=== PATIENT | male | born 1950 | race Caucasian/White ===

== ENCOUNTER 2025-01-04 19:55 | Inpatient (IN) ==
[2025-01-04] MEDS ORDERED: IOPAMIDOL 100 ML BOTTLE IV ONE (19:56)
[2025-01-04 20:47] LABS: Basophils # (Auto) 0.01 K/mcL (0.00-0.30); Basophils % (Auto) 0.1 % (0.0-2.0); Eosinophils # (Auto) 0.44 K/mcL (0.00-0.70); Eosinophils % (Auto) 3.6 % (0.0-7.0); Hematocrit 48.3 % (40.1-51.0); Lymphocytes # (Auto) 0.68 K/mcL (1.50-4.80); Lymphocytes % (Auto) 5.6 % (15.5-49.0); Mean Cell Volume 96.8 fL (80.0-100.0); Mean Corpuscular HGB Conc 33.1 g/dL (31.0-36.0); Mean Platelet Volume 8.8 fL (8.8-12.5); Monocytes # (Auto) 1.04 K/mcL (0.10-0.90); Monocytes % (Auto) 8.5 % (1.0-12.0); Neutrophils % (Auto) 81.6 % (38.0-78.0); Platelet Count 226 K/mcL (140-440); RBC 4.99 M/mcL (4.63-6.08); Red Cell Distribution Width 13.6 % (11.5-14.5); WBC 12.2 K/mcL (4.5-11.0)
[2025-01-04] MEDS: SODIUM CHLORIDE IV ONE (20:48)
[2025-01-04] MEDS: cefTRIAXone 1 GM VIAL IV ONE (20:48)
[2025-01-04 20:59] LABS: Prothrombin Time 14.3 sec (11.9-14.5)
[2025-01-04 21:11] LABS: ALT/SGPT 34 U/L (<40); AST/SGOT 30 U/L (<40); Albumin 4.1 gm/dL (3.2-5.2); Albumin/Globulin Ratio 1.3 (1.0-2.3); Alkaline Phosphatase 86 U/L (39-117); Bilirubin,Total 0.6 mg/dL (0.1-1.0); Blood Urea Nitrogen 12 mg/dL (8-23); Calcium 8.8 mg/dL (8.6-10.4); Carbon Dioxide 21 mmol/L (22-30); Chloride 93 mmol/L (96-108); Globulin 3.1 gm/dL (2.2-3.7); Glomerular Filtration Rate 87; Glucose 149 mg/dL (70-105); Potassium 4.3 mmol/L (3.3-5.1); Sodium 131 mmol/L (133-145)
[2025-01-04] MEDS: ONDANSETRON 4 MG/2 ML VIAL IV ONE (21:44)
[2025-01-04] MEDS: ACETAMINOPHEN 1,000 MG/100 ML BAG IV ONE (21:45)
[2025-01-04] MEDS: AZITHROMYCIN 500 MG in 0.9 % SODIUM CHLORIDE 250 ML IV ONE (22:55)
[2025-01-05 00:30] LABS: Appearance,Urine Clear (Clear); Bacteria,Urine Rare /hpf (0); Bilirubin,Urine Negative (Negative); Color,Urine Yellow; Glucose,Urine (UA) Negative (Negative); Ketones,Urine Negative (Negative); Leukocyte Esterase,Urine Negative /uL (Negative); Mucus,Urine Few /hpf; Nitrate,Urine Negative (Negative); Protein,Urine 30 mg/dL (Negative); Urine Blood Negative ery/mcL (Negative); Urine RBC < 1 /hpf (0-3); Urine Squamous Epithelial Cell < 1 /hpf (0-4); Urine WBC 2 /hpf (0-4); Urobilinogen,Urine Normal
[2025-01-05] MEDS: DEXTROSE 5%-LR 1,000 ML IV SCH (02:54)
[2025-01-05] MEDS: HYDROmorphone 0.5 MG/0.5 ML SYRINGE IV PRN (05:37)
[2025-01-05] MEDS ORDERED: ALBUTEROL INH PRN (08:45)
[2025-01-05] MEDS ORDERED: BUDESONIDE INH PRN (08:45)
[2025-01-05] MEDS: TAMSULOSIN 0.4 MG CAPSULE PO SCH (09:35)
[2025-01-05] MEDS: Budesonide-Glycopyr-Formoterol [Breztri] INH SCH (10:38)
[2025-01-05] MEDS: ONDANSETRON 4 MG/2 ML VIAL IV PRN (17:09)
[2025-01-05] MEDS: ATORVASTATIN 40 MG TABLET PO SCH (20:29)
[2025-01-05] MEDS: MONTELUKAST 10 MG TABLET PO SCH (20:29)
[2025-01-05] MEDS: DULoxetine 30 MG CAPSULE PO SCH (20:29)
[2025-01-06 06:18] LABS: Hemoglobin 14.1 g/dL (13.7-17.5); Mean Platelet Volume 8.9 fL (8.8-12.5); Platelet Count 199 K/mcL (140-440); Red Cell Distribution Width 13.7 % (11.5-14.5)
[2025-01-06 07:03] LABS: Blood Urea Nitrogen 10 mg/dL (8-23); Calcium 7.9 mg/dL (8.6-10.4); Carbon Dioxide 29 mmol/L (22-30); Chloride 99 mmol/L (96-108); Glomerular Filtration Rate 87; Glucose 152 mg/dL (70-105); Potassium 3.8 mmol/L (3.3-5.1); Sodium 137 mmol/L (133-145)
[2025-01-06] MEDS: ACETAMINOPHEN 1,000 MG/100 ML BAG IV PRN (20:40)
[2025-01-06] MEDS: PRIMIDONE 50 MG TABLET PO SCH (20:40)
[2025-01-07 05:54] LABS: Hemoglobin 13.3 g/dL (13.7-17.5); Mean Cell Volume 100.7 fL (80.0-100.0); Mean Corpuscular HGB Conc 31.7 g/dL (31.0-36.0); Mean Platelet Volume 8.7 fL (8.8-12.5); Platelet Count 191 K/mcL (140-440); RBC 4.17 M/mcL (4.63-6.08); Red Cell Distribution Width 13.6 % (11.5-14.5); WBC 7.1 K/mcL (4.5-11.0)
[2025-01-07 06:13] LABS: Blood Urea Nitrogen 10 mg/dL (8-23); Calcium 8.1 mg/dL (8.6-10.4); Carbon Dioxide 31 mmol/L (22-30); Chloride 97 mmol/L (96-108); Glomerular Filtration Rate 87; Glucose 134 mg/dL (70-105); Potassium 3.6 mmol/L (3.3-5.1); Sodium 137 mmol/L (133-145)
[2025-01-07] MEDS: BENZOCAINE/MENTHOL 1 LOZENGE PO PRN (14:20)
[2025-01-07] MEDS: DEXTROSE 5%-1/2NS 1,000 ML IV SCH (17:44)
[2025-01-08 06:06] LABS: Blood Urea Nitrogen 8 mg/dL (8-23); Calcium 8.3 mg/dL (8.6-10.4); Carbon Dioxide 31 mmol/L (22-30); Chloride 95 mmol/L (96-108); Glomerular Filtration Rate 92; Glucose 125 mg/dL (70-105); Potassium 3.4 mmol/L (3.3-5.1); Sodium 138 mmol/L (133-145)
[2025-01-08] MEDS: PANTOPRAZOLE 40 MG VIAL IV SCH (07:04)
[2025-01-08 07:39] LABS: Hematocrit 42.5 % (40.1-51.0); Hemoglobin 13.5 g/dL (13.7-17.5); Mean Cell Volume 99.8 fL (80.0-100.0); Mean Corpuscular HGB Conc 31.8 g/dL (31.0-36.0); Mean Platelet Volume 8.9 fL (8.8-12.5); Platelet Count 232 K/mcL (140-440); RBC 4.26 M/mcL (4.63-6.08); Red Cell Distribution Width 13.2 % (11.5-14.5)
[2025-01-08] MEDS ORDERED: DIATRIZOATE MEGLU/DIATRIZO SOD 30 ML BOTTLE PO ONE (12:55)
[2025-01-08] MEDS ORDERED: DIATRIZOATE MEGLU/DIATRIZO SOD 120ML BOTTLE PO ONE (12:55)
[2025-01-08] MEDS ORDERED: [UNRECOGNIZED DRUG - OTHER] INHALATION PRN (18:40)
[2025-01-08] MEDS ORDERED: ALBUTEROL INHALATION PRN (18:40)
[2025-01-08] MEDS ORDERED: BUDESONIDE INHALATION PRN (18:40)
[2025-01-09] MEDS: DEXTROSE 5%-1/2NS W/20MEQ KCL 1,000 ML IV SCH ×2 (00:28→01:18)
[2025-01-09 06:11] LABS: Blood Urea Nitrogen 5 mg/dL (8-23); Calcium 8.3 mg/dL (8.6-10.4); Carbon Dioxide 31 mmol/L (22-30); Chloride 96 mmol/L (96-108); Glomerular Filtration Rate 98; Glucose 142 mg/dL (70-105); Potassium 3.4 mmol/L (3.3-5.1); Sodium 135 mmol/L (133-145)
[2025-01-09] MEDS: SUCRALFATE 1 GM TABLET PO PRN (10:23)
[2025-01-09] MEDS: METOCLOPRAMIDE 10 MG/2 ML VIAL IV SCH (13:30)
[2025-01-10 05:47] LABS: Basophils # (Auto) 0.04 K/mcL (0.00-0.30); Basophils % (Auto) 0.6 % (0.0-2.0); Eosinophils # (Auto) 0.33 K/mcL (0.00-0.70); Eosinophils % (Auto) 4.8 % (0.0-7.0); Hematocrit 42.2 % (40.1-51.0); Hemoglobin 13.8 g/dL (13.7-17.5); Lymphocytes # (Auto) 1.97 K/mcL (1.50-4.80); Lymphocytes % (Auto) 28.6 % (15.5-49.0); Mean Cell Volume 97.7 fL (80.0-100.0); Mean Corpuscular HGB Conc 32.7 g/dL (31.0-36.0); Mean Platelet Volume 8.7 fL (8.8-12.5); Monocytes # (Auto) 0.62 K/mcL (0.10-0.90); Neutrophils % (Auto) 56.6 % (38.0-78.0); Platelet Count 268 K/mcL (140-440); RBC 4.32 M/mcL (4.63-6.08); WBC 6.9 K/mcL (4.5-11.0)
[2025-01-10 06:07] LABS: ALT/SGPT 27 U/L (<40); AST/SGOT 35 U/L (<40); Albumin 3.4 gm/dL (3.2-5.2); Albumin/Globulin Ratio 1.1 (1.0-2.3); Alkaline Phosphatase 71 U/L (39-117); Bilirubin,Total 0.5 mg/dL (0.1-1.0); Blood Urea Nitrogen 6 mg/dL (8-23); Calcium 8.9 mg/dL (8.6-10.4); Carbon Dioxide 30 mmol/L (22-30); Chloride 99 mmol/L (96-108); Glomerular Filtration Rate 92; Glucose 128 mg/dL (70-105); Potassium 3.5 mmol/L (3.3-5.1); Sodium 138 mmol/L (133-145)
[2025-01-10] MEDS: OMEPRAZOLE 20 MG CAPSULE PO SCH (07:26)
[2025-01-10 07:48] VITALS: TEMP 97.7; O2SAT 90
== END 2025-01-10 09:00 | disposition home or self-care (01) | DRG 389 ==
LOC: ED 19:55 → MEDSUR 01-05 02:43
PROVIDERS: ADMIT Surgery Surgical Critical Care; ATTEND Surgery